=== PATIENT | male | born 1975 | race Two or more races ===

== ENCOUNTER → 2022-07-28 | Emergency (ER) | payer OTHER ==
[~2022-07-28] VITALS: Ht 185.4 cm; Wt 88.0 kg
[~2022-07-28] MED LIST: CRESTOR5 MG PO
== END | disposition home or self-care (01) ==
LOC: ER 10:25
DX: S05.01XA Injury of conjunctiva and corneal abrasion without foreign body, right eye, initial encounter (principal); W27.8XXA Contact with other nonpowered hand tool, initial encounter; Y93.9 Activity, unspecified; Y92.9 Unspecified place or not applicable; Y99.9 Unspecified external cause status